=== PATIENT | female | born 1935 | race Hispanic/Latino ===

== ENCOUNTER 2017-07-06 12:16 | Emergency (ER) | payer MEDICARE ==
[~2017-07-06] VITALS: Ht 165.1 cm; Wt 65.3 kg
[~2017-07-06 12:16] MED LIST: ATENOLOL50 MG PO; GLIPIZIDE ER5 MG PO; LISINOPRIL10 MG PO
[2017-07-06] MEDS ORDERED: SODIUM CHLORIDE 0.9% 1000ML 1,000 ML IV STA (13:14)
[2017-07-06 13:25] LABS: BILIRUBIN,URINE NEGATIVE (NEGATIVE); CLARITY,URINE CLEAR (CLEAR); COLOR,URINE YELLOW (YELLOW); KETONES,URINE NEGATIVE (NEGATIVE); LEUKOCYTE ESTERASE ,URINE 1+ (NEGATIVE); NITRITE,URINE NEGATIVE (NEGATIVE); URINE UROBILINOGEN 0.2 mg/dL (0.2 - 1)
[2017-07-06 13:33] LABS: PROTEIN,URINE DIPSTICK 1+ (NEGATIVE)
[2017-07-06 13:48] LABS: BACTERIA,URINE FEW /HPF; EPITHELIAL CELLS,URINE FEW /LPF; RBC,URINE 21-50 /HPF (0-5); WBC,URINE (MAN) 21-50 /HPF (0-5)
[2017-07-06 13:49] LABS: TRANSITIONAL EPI CELLS,URINE MODERATE
--- NOTE | 2017-07-06 13:52 | Diagnostic Imaging Report ---
PROCEDURE: A single AP view of the chest. COMPARISON: None. INDICATIONS: CHEST PAIN FINDINGS: Lines/tubes: None. Lungs: The lungs are well inflated and clear. There is no evidence of pneumonia or pulmonary edema. Pleura: There is no pleural effusion or pneumothorax. Heart and mediastinum: The heart and the mediastinum are unremarkable. Bones: No acute bony abnormality. IMPRESSION: 1. No acute cardiopulmonary disease. Dictated by: Venkat Cooper M.D. on 07/06/2017 at 14:01 Electronically approved by: Venkat Cooper M.D. on 07/06/2017 at 14:01
[2017-07-06] MEDS ORDERED: ONDANSETRON HCL INJ 2 MG/ML VIAL IV STA (15:41)
[2017-07-06 16:01] LABS: BASOPHILS % 0.6 % (0.0-1.0); EOSINOPHILS # (AUTO) 0.2 (0.0-0.4); HEMATOCRIT 36.8 % (34.2-44.1); HEMOGLOBIN 11.7 g/dL (12.0-16.0); LYMPHOCYTES # (AUTO) 1.1 (1.0-3.2); LYMPHOCYTES % 21.2 % (18.0-39.1); MEAN CORPUSCULAR HEMOGLOBIN 25.2 pg (28-32); MEAN CORPUSCULAR HGB CONC 31.8 g/dL (31-35); MEAN CORPUSCULAR VOLUME 79.3 fL (81-99); MONOCYTES # (AUTO) 0.3 (0.2-0.8); MONOCYTES % 5.3 % (4.4-11.3); NEUTROPHILS # (AUTO) 3.7 (2.1-6.9); NEUTROPHILS % 69.5 % (38.7-80.0); PLATELET COUNT 126 x10e3/uL (140-360); RED BLOOD COUNT 4.64 x10e6/uL (3.6-5.1); RED CELL DISTRIBUTION WIDTH 14.1 % (11.7-14.4)
[2017-07-06 16:09] LABS: INR 0.95; PROTHROMBIN TIME 13.1 seconds (11.9-14.5)
[2017-07-06 16:10] LABS: PARTIAL THROMBOPLASTIN TIME 31.1 seconds (23.8-35.5)
[2017-07-06 16:21] LABS: ALANINE AMINOTRANSFERASE 27 IU/L (0-55); ALBUMIN 4.2 g/dL (3.5-5.0); ALKALINE PHOSPHATASE 105 IU/L (40-150); ANION GAP 13.2 mmol/L (8-16); BLOOD UREA NITROGEN 17 mg/dL (7-26); BUN/CREATININE RATIO 20 (6-25); CALCIUM 10.9 mg/dL (8.4-10.2); CARBON DIOXIDE 27 mmol/L (22-29); CHLORIDE 107 mmol/L (98-107); CREATINE KINASE 65 IU/L (29-168); CREATININE, SERUM 0.86 mg/dL (0.57-1.11); EST GLOMERULAR FILTRATION RATE > 60 ML/MIN (60-); GLUCOSE 103 mg/dL (74-118); LIPASE 7 U/L (8-78); POTASSIUM 4.2 mmol/L (3.5-5.1); SODIUM 143 mmol/L (136-145)
[2017-07-06 16:27] LABS: TROPONIN I 0.012 ng/mL (0-0.300)
[2017-07-06] MEDS ORDERED: CEFTRIAXONE SOD 1 GM VIAL IV ONE (17:00)
[2017-07-06] MEDS ORDERED: DIATRIZOATE MEGL/DIATRIZOA SOD 120 ML BTL PO ONE (18:58)
--- NOTE | 2017-07-06 21:17 | Diagnostic Imaging Report ---
EXAM: CT ABDOMEN AND PELVIS with IV CONTRAST DATE: 07/06/2017 6:13 PM Time stamp on Exam: 2033 hours INDICATION: Abdominal pain, nausea, vomiting, diarrhea COMPARISON: CT of the abdomen and pelvis without IV contrast August 30, 2016 TECHNIQUE: The abdomen and pelvis were scanned using a multidetector helical scanner. Coronal and sagittal reformations were obtained. Routine protocol performed. IV Contrast: 100 cc Isovue-370 Oral Contrast: Gastrografin CTDIvol has been reviewed. It is below the limits set by the Radiation Protocol Committee (RPC). FINDINGS: LOWER THORAX: No consolidations LIVER: No masses BILIARY: Cholecystectomy. No ductal dilation. SPLEEN: No masses PANCREAS: Fatty replacement of the pancreas. ADRENALS: No nodules KIDNEYS: Symmetric perfusion. No enhancing masses. No hydronephrosis. GI TRACT: No distention, wall thickening or evidence of obstruction. Normal appendix. VESSELS: Mild to moderate atherosclerotic changes without aneurysm. PERITONEUM/RETROPERITONEUM: No free air or fluid LYMPH NODES: No lymphadenopathy REPRODUCTIVE ORGANS: Unremarkable BLADDER: Unremarkable SOFT TISSUES: Unremarkable BONES: No suspicious bone lesions. IMPRESSION: No CT findings to explain patient's symptoms. No bowel obstruction. Signed by: Dr. Maite Amaya M.D. on 07/06/2017 9:14 PM
[2017-07-06] MEDS ORDERED: CEFTRIAXONE SOD 1 GM VIAL ONE (21:57)
[2017-07-06] MEDS ORDERED: SODIUM CHLORIDE 0.9% 50ML 50 ML ONE (22:38)
[2017-07-06] MEDS ORDERED: IOPAMIDOL 370 MG/ML 200 ML INFUS..BTL INJ ONE (22:38)
== END 2017-07-06 22:12 | disposition home or self-care (01) ==
LOC: ER 12:16
DX: R10.84 Generalized abdominal pain (principal); M54.5 Low back pain; N39.0 Urinary tract infection, site not specified; I10 Essential (primary) hypertension; E11.9 Type 2 diabetes mellitus without complications; Z86.73 Personal history of transient ischemic attack (TIA), and cerebral infarction without residual deficits
CPT/HCPCS: 36415; 71010; 74177; 80053; 81001; 82550; 82553; 83690; 84484; 85025; 85610; 85730; 87086; 99283; J0696; J2405; J7030; Q9963; Q9967

== ENCOUNTER 2018-08-20 04:42 | Emergency (ER) | payer MEDICARE ==
[~2018-08-20] VITALS: Ht 165.1 cm; Wt 65.3 kg
--- OUTSIDE RECORDS SUMMARY | 2018-08-20 04:45 | XMS REPORT | Summary of Care ---
Author Organization Unknown Address Unknown Phone Unavailable Encounter HQ [facility]cntr_aliamy([place]) [id number] Date(s): 12/27/14 - 12/27/14 [facility] Outpatient Imaging - [address] [id number] [phone] Discharge Disposition: Home Physician Attending: Dipesh Carter MD Vital Signs No data available for this section Problem List No data available for this section Allergies, Adverse Reactions, Alerts No data available for this section Medications No data available for this section Results No data available for this section Immunizations No data available for this section Procedures No data available for this section Social History No data available for this section Assessment and Plan No data available for this section
--- OUTSIDE RECORDS SUMMARY | 2018-08-20 04:45 | XMS REPORT | Continuity of Care Document ---
Author Author [facility] Interface Address Unknown Phone Unavailable Problems Problem Status Onset Date Classification Date Reported Comments Source Syncope and collapse 09/18/2017 12/17/2017 [facility] HYPOTENSION Active 09/09/2017 [facility] ATYPICAL SYNCOPE, HYPOTENSION, DEHYDRATI Active 09/09/2017 [facility] 794.8 ABNORMAL LIVER FUNCTION STUDY Active 01/11/2015 [facility] 922.31 - BACK CONTUSION Active 05/10/2013 [facility] [place] Diarrhea, unspecified 12/17/2017 [facility] Volume depletion, unspecified 12/17/2017 [facility] Abnormal weight loss 12/17/2017 [facility] Orthostatic hypotension 12/17/2017 [facility] Type 2 diabetes mellitus without complications 12/17/2017 [facility] Essential hypertension 12/17/2017 [facility] Occlusion and stenosis of bilateral carotid arteries 12/17/2017 [facility] Personal history of transient ischemic attack , and cerebral infarction without residual deficits 12/17/2017 [facility] senior care use of oral hypoglycemic drugs 12/17/2017 [facility] ABN LIVER FUNCTION STUDY Active [facility] Medications Medication Details Route Status Patient Instructions Ordering Provider Order Date Source Glipizide 5 MG Oral Tablet 2.5 mg=0.5 tab, PO, Before Breakfast, .., # 15 tab, 0 Refill(s), Pharmacy: [email or web address] [id number] Active 09/10/2017 [facility] gabapentin 100 MG Oral Capsule 200 mg=2 cap, PO, BID, # 120 cap, 0 Refill(s), Pharmacy: [facility] [id number] Active 09/10/2017 [facility] glipiZIDE extended release 10 mg, Route: PO, Daily, Dosing Weight 62.727, kg, Start date: 09/10/17 9:00:00 CDT, Duration: 30 day, Stop date: 10/09/17 9:00:00 CDT No Longer Active 09/10/2017 [facility] Docusate 100 mg, 1 cap, Route: PO, Drug form: CAP, BID, Dosing Weight 62.727, kg, Start date: 09/10/17 9:00:00 CDT, Duration: 30 day, Stop date: 10/09/17 17:00:00 CDTNotes: (Same as: Colace) (Do Not Crush) Inactive 09/10/2017 [facility] Glipizide 2.5 mg, 0.5 tab, Route: PO, Drug form: TAB, Before Breakfast, Dosing Weight 62.727, kg, Start date: 09/10/17 7:30:00 CDT, Duration: 30 day, Stop date: 10/09/17 7:30:00 CDT, ..Notes: (Same as: Glucotrol) 30 min before meals. Inactive 09/10/2017 [facility] metoprolol tartrate 25 mg, 1 tab, Route: PO, Drug form: TAB, BID, Dosing Weight 62.727, kg, Start date: 09/09/17 21:00:00 CDT, Duration: 30 day, Stop date: 10/09/17 9:00:00 CDTNotes: (Same as: Lopressor) No Longer Active 09/10/2017 [facility] Acetaminophen 325 MG / Hydrocodone Bitartrate 5 MG Oral Tablet 1 tab, Route: PO, Drug Form: TAB, Dosing Weight 62.727, kg, Q4H, PRN Pain Score 4-6, Start date: 09/09/17 18:44:00 CDT, Duration: 30 day, Stop date: 10/09/17 18:43:00 CDTNotes: (Same as: [place] 325/5) Do not exceed 4gm/day of acetaminophen. No Longer Active 09/09/2017 [facility] Acetaminophen 650 mg, 2 tab, Route: PO, Drug form: TAB, Q4H, Dosing Weight 62.727, kg, PRN Pain 1-3/Temp > 100.4 F, Start date: 09/09/17 18:44:00 CDT, Duration: 30 day, Stop date: 10/09/17 18:43:00 CDTNotes: Do not exceed 4 gm/day. (Same as: Tylenol) No Longer Active 09/09/2017 [facility] Ondansetron 4 mg, 2 mL, Route: IVP, Drug form: INJ, Q6H, Dosing Weight 62.727, kg, PRN Nausea & Vomiting, Start date: 09/09/17 18:44:00 CDT, Duration: 30 day, Stop date: 10/09/17 18:43:00 CDTNotes: (Same as: Zofran) MEDICATION WASTE Product Size: 4 mg Product Wasted: ___ mg No Longer Active 09/09/2017 [facility] Morphine 6 mg, 3 mL, Route: PO, Drug form: SOLN, Q4H, Dosing Weight 62.727, kg, PRN Pain Score 7-10, Start date: 09/09/17 18:44:00 CDT, Duration: 30 day, Stop date: 10/09/17 18:43:00 CDTNotes: (Same as:MORPhine Sulfate) No Longer Active 09/09/2017 [facility] glipiZIDE extended release 10 mg, PO, Daily, 0 Refill(s) No Longer Active 09/09/2017 [facility] metoprolol tartrate 50 mg, BID, 0 Refill(s) Active 09/09/2017 [facility] gabapentin 100 MG Oral Capsule 300 mg=3 cap, PO, TID, 0 Refill(s) No Longer Active 09/09/2017 [facility] lisinopril 5 mg oral tablet 5 mg=1 tab, PO, Daily, 0 Refill(s) No Longer Active 09/09/2017 [facility] Lisinopril PO, Daily, 0 Refill(s) No Longer Active 09/09/2017 [facility] Dicyclomine Hydrochloride 20 MG Oral Tablet [Bentyl] 20 mg=1 tab, PO, QID, 0 Refill(s) Active 09/09/2017 [facility] Allergies, Adverse Reactions, Alerts Substance Category Reaction Severity Reaction type Status Date Reported Comments Source Immunizations Immunization Date Given Site Status Last Updated Comments Source Results Order Name Results Value Reference Range Date Interpretation Comments Source Breast Mammo Scrn DAVID incl CAD MA Breast Mammo Scrn DAVID incl CAD MA BILATERAL DIGITAL SCREENING MAMMOGRAM WITH CAD: 02/05/2018 CLINICAL: Routine/Screening. Current study was evaluated with a Computer Aided Detection (CAD) system. COMPARISON:Comparison is made to exams dated: 12/27/2014 mammogram, 11/15/2012 mammogram, and 09/15/2011 mammogram - [facility]. TECHNIQUE: Mammographic views were obtained using digital acquisition. Current study was also evaluated with a Computer Aided Detection (CAD) system. FINDINGS: The tissue of both breasts is almost entirely fat. No significant masses, calcifications, or other findings are seen in either breast. There has been no significant interval change. IMPRESSION: NEGATIVE RECOMMENDATION:There is no mammographic evidence of malignancy. A 1 year screening mammogram is recommended.(02/06/2019) This exam was interpreted at [id number] at [facility] Location. Professional services are provided by the [facility] [place] [place]. Kiana Hutton M.D. th/penrad:02/07/2018 20:38:39 Dynamiter(s): Tea Richmond RT(R)(M), [facility] letter sent: BI-RADS 1/2 Mammogram BI-RADS: 1 Negative 02/05/2018 - - Read by: Kiana Hutton MD Dictated Date/time: 02/07/18 20:38 Electronically Signed by: Kiana Hutton MD 02/07/18 20:38 [facility] URINE AND STOOL UA Urobilinogen <=1.0 mg/dL 0.1 - 1.0 09/10/2017 [facility] URINE AND STOOL UA Turbidity Slight *ABN* (09/09/17 9:37 PM) Clear 09/10/2017 [facility] URINE AND STOOL UA Spec Grav 1.014 <=1.030 09/10/2017 [facility] URINE AND STOOL UA Nitrite Negative (09/09/17 9:37 PM) Negative 09/10/2017 [facility] URINE AND STOOL UA Sq Epi Occasional /LPF Few /LPF 09/10/2017 [facility] URINE AND STOOL UA Mucus Few /LPF None Seen /LPF 09/10/2017 [facility] URINE AND STOOL UA Leuk Est Negative (09/09/17 9:37 PM) Negative 09/10/2017 [facility] URINE AND STOOL UA Blood Negative (09/09/17 9:37 PM) Negative 09/10/2017 [facility] URINE AND STOOL UA Protein Negative mg/dL Negative mg/dL 09/10/2017 [facility] URINE AND STOOL UA Glucose Negative mg/dL Negative mg/dL 09/10/2017 [facility] URINE AND STOOL UA pH 5.0 5.0 - 8.0 09/10/2017 [facility] URINE AND STOOL UA Color Yellow *NA* (09/09/17 9:37 PM) Yellow 09/10/2017 [facility] URINE AND STOOL UA Bili Negative *NA* (09/09/17 9:37 PM) Negative 09/10/2017 [facility] URINE AND STOOL UA Ketones Negative mg/dL Negative mg/dL 09/10/2017 [facility] Carotid artery Doppler bilat US Carotid artery Doppler bilat US Patient Name: REGINA VALENZUELA : 1935; Age: 82 years Female MR: [id number] Study: Carotid artery Doppler bilat US 09/09/2017 6:53 PM CDT Clinical Indication: - syncope. COMPARISON: 08/05/2010 TECHNIQUE: Chadwick-scale, color Doppler and spectral Doppler of the carotid arteries was performed. Any reported ICA stenoses indirectly reference the distal internal carotid diameter as the denominator for the stenosis measurement, utilizing consensus panel criteria. FINDINGS: RIGHT: Mild plaque formation. ICA PSV 84 cm/sec CCA PSV 116 cm/sec ICA/CCA ratio 0.72 Vertebral flow is antegrade. External carotid artery is patent. LEFT: Mild plaque formation. ICA PSV 145 cm/sec CCA PSV 137 cm/sec ICA/CCA ratio 1.06 Vertebral flow is antegrade. External carotid artery is patent. IMPRESSION: 1. RIGHT: ICA stenosis <50% by velocity criteria. 1. LEFT: ICA stenosis <50% by velocity criteria. Consensus panel Doppler US criteria for diagnosis of ICA stenosis: Stenosis (%) ICA PSV (cm/sec) ICA/CCA ratio <50 <125 <2.0 50-69 125-230 2.0-4.0 >70 but less than >230 >4.0 near occlusion Near occlusion High, low, or Variable undetectable SL: ENEDINA 09/09/2017 - - Read by: Brenton Flores MD Dictated Date/time: 09/09/17 21:55 Electronically Signed by: Brenton Flores MD 09/09/17 21:59 FINAL REPORT [facility] CARDIAC ENZYMES BNP 28 pg/mL <=100 pg/mL 09/09/2017 [facility] CARDIAC ENZYMES Troponin-I null 0.00 - 0.40 09/09/2017 [facility] ELECTROLYTES AGAP 9.2 meq/L 10.0 - 20.0 09/09/2017 [facility] ELECTROLYTES eGFR 55 mL/min/1.73m2 09/09/2017 Result Comment: The eGFR is calculated using the CKD-EPI formula. In most young, healthy individuals the eGFR will be >90 mL/min/1.73m2. The eGFR declines with age. An eGFR of 60-89 may be normal in some populations, particularly the elderly, for whom the CKD-EPI formula has not been extensively validated. Use of the eGFR is not recommended in the following populations: Individuals with unstable creatinine concentrations, including patients and those with serious co-morbid conditions. Patients with extremes in muscle mass or diet. The data above are obtained from the National Kidney Disease Education Program (NKDEP) which additionally recommends that when the eGFR is used in patients with extremes of body mass index for purposes of drug dosing, the eGFR should be multiplied by the estimated BMI. [facility] ELECTROLYTES Calcium Lvl 7.6 mg/dL 8.5 - 10.5 09/09/2017 [facility] ELECTROLYTES CO2 25 meq/L 24 - 32 09/09/2017 [facility] ELECTROLYTES Potassium Lvl 4.2 meq/L 3.5 - 5.1 09/09/2017 [facility] ELECTROLYTES Chloride Lvl 107 meq/L 95 - 109 09/09/2017 [facility] ELECTROLYTES Glucose Lvl 193 mg/dL 70 - 99 09/09/2017 [facility] ELECTROLYTES BUN 16 mg/dL 7 - 22 09/09/2017 [facility] ELECTROLYTES Creatinine Lvl 0.96 mg/dL 0.50 - 1.40 09/09/2017 [facility] ELECTROLYTES Sodium Lvl 137 meq/L 135 - 145 09/09/2017 [facility] HEMATOLOGY RDW 15.5 % 11.5 - 14.5 09/09/2017 [facility] MPV 9.8 fL 7.4 - 10.4 09/09/2017 [facility] Platelet 81 K/CMM 133 - 450 09/09/2017 [facility] MCH 25.2 pg 27.0 - 31.0 09/09/2017 [facility] MCHC 32.1 g/dL 32.0 - 36.0 09/09/2017 [facility] Hct 31.7 % 36.0 - 48.0 09/09/2017 [facility] MCV 78.5 fL 80.0 - 98.0 09/09/2017 [facility] Hgb 10.2 g/dL 12.0 - 16.0 09/09/2017 [facility] RBC 4.04 M/CMM 4.20 - 5.40 09/09/2017 [facility] WBC 4.4 K/CMM 3.7 - 10.4 09/09/2017 [facility] Segs 70.4 % 45.0 - 75.0 09/09/2017 [facility] Lymphocytes 11.9 % 20.0 - 40.0 09/09/2017 [facility] Monocytes 12.9 % 2.0 - 12.0 09/09/2017 [facility] Eosinophils 4.1 % 0.0 - 4.0 09/09/2017 [facility] Basophils 0.7 % 0.0 - 1.0 09/09/2017 [facility] Segs-Bands # 3.1 K/CMM 1.5 - 8.1 09/09/2017 [facility] Monocytes # 0.6 K/CMM 0.0 - 0.8 09/09/2017 [facility] Lymphocytes # 0.5 K/CMM 1.0 - 5.5 09/09/2017 [facility] Microcyte 1+ *ABN* (09/09/17 12:10 PM) None Seen 09/09/2017 [facility] Eosinophils # 0.2 K/CMM 0.0 - 0.5 09/09/2017 [facility] Brain wo contrast CT Brain wo contrast CT Clinical Indication: - syncope , weakness and fatigue Comparison: 04/01/2013 TECHNIQUE: CT images were obtained from the foramen magnum to the vertex after the use of intravenous contrast on a multidetector CT. 3-D sagittal and coronal reconstructions submitted as well. CONTRAST: None CT radiation dose DLP: 981.84 mGy-cm FINDINGS: BRAIN PARENCHYMA: Generalized age-related parenchymal atrophy. Scattered foci of periventricular and deep cerebral hemispheric white matter hypoattenuation are nonspecific but likely secondary to chronic microvascular ischemic disease. Subtle low-attenuation left lentiform nucleus, unchanged, suggesting sequela of remote lacunar infarct. There are no focal mass lesions on the noncontrast head CT. There is no mass effect, midline shift or edema. There are no intra-axial or extra-axial fluid collections, intraventricular or intraparenchymal hemorrhage. VENTRICLES: No acute hydrocephalus. The basilar cisterns are normal. ORBITS, MASTOIDS AND PARANASAL SINUSES: The visualized orbits and paranasal sinuses are unremarkable. The mastoid air cells are clear. SKULL: No depressed skull fractures. If there is continued concern, further assessment with dedicated MR of the brain may be beneficial. IMPRESSION: 1. No CT evidence for acute intracranial process. 2. Generalized age-related parenchymal atrophy and chronic microvascular ischemic disease. SL: [id number] 09/09/2017 - - Read by: Mitch Sue MD Dictated Date/time: 09/09/17 14:27 Electronically Signed by: Mitch Sue MD 09/09/17 14:28 FINAL REPORT [facility] Chest 1view DX Chest 1view DX Chest 1view DX CLINICAL HISTORY: - syncope COMPARISON: 07/20/2006 FINDINGS: Limited AP portable study. SUPPORT DEVICES: none LUNGS: Lungs are reasonably well inflated. No consolidation or any significant effusion. No pneumothorax is evident. CARDIOVASCULAR: Cardiac silhouette size is within normal limits. No pulmonary edema. MEDIASTINUM/WILLIAN: Trachea is midline. No contour abnormality is noted. BONE AND SOFT TISSUES: No acute abnormality is noted. Multiple EKG leads and other wires project over the patient's chest. IMPRESSION: No acute abnormality is noted in the chest. SL: [id number] 09/09/2017 - - Read by: Kadeem Condon MD Dictated Date/time: 09/09/17 12:44 Electronically Signed by: Kadeem Condon MD 09/09/17 12:45 FINAL REPORT [facility] Liver US Liver US HISTORY: Abnormal liver function test. Gallbladder absent. Hepatic steatosis without focal lesion or duct dilatation. Pancreas normal, although distal body and tail are obscured. Common bile duct 5 mm. Right kidney demonstrates no hydronephrosis. IMPRESSION: Hepatic steatosis without focal lesion or bile duct dilatation. Prior cholecystectomy. SL:13 01/15/2015 - - Read by: Osmar Zhong MD Dictated Date/time: 01/15/15 10:17 Electronically Signed by: Osmar Zhong MD 01/15/15 10:18 FINAL REPORT [facility] Digital Mammo Screening [place] Digital Mammo Screening [place] - DIGITAL MAMMO SCREENING DAVID [place] BILATERAL DIGITAL SCREENING MAMMOGRAM WITH CAD: 12/27/2014 CLINICAL: Routine. Current study was evaluated with a Computer Aided Detection (CAD) system. Comparison is made to exams dated: 01/08/2009 mammogram - [place], 01/14/2010 mammogram, 09/15/2011 mammogram and 11/15/2012 mammogram - [facility]. The tissue of both breasts is almost entirely fat. Acquired images are the best technically achievable. No significant masses, calcifications, or other findings are seen in either breast. There has been no significant interval change. IMPRESSION: BENIGN There is no mammographic evidence of malignancy. A 1 year screening mammogram is recommended. Dr. Berry Mendoza M.D. eoc/penrad:12/27/2014 12:07:06 Dynamiter: Roxanna FLANAGAN(Cesar)(M), [facility] This exam was dictated and interpreted by [id number] for SEE Marrufo. letter sent: Normal exam Mammogram BI-RADS: 2 Benign 12/27/2014 - - Read by: Berry Mendoza MD Dictated Date/time: 12/27/14 12:07 Electronically Signed by: Berry Mendoza MD 12/27/14 12:07 FINAL REPORT CARLOS Burks Spine lumbar minimum 4 views Spine lumbar minimum 4 views Exam: Lumbar Spine X-ray, 5 views Reason for Exam: Back pain Comparison Exam: Lumbar spine x-ray 06/17/2006 Discussion: 5 non rib-bearing lumbar vertebral bodies are seen. Vertebral body heights are maintained. No scoliosis. Grade 1 anterolisthesis of L5 on S1 measuring approximately 9 mm. Facet joint arthropathy seen within the lower lumbar spine. Moderate amount of plaque seen throughout the abdominal aorta. No suspicious osteoblastic or osteolytic lesions. Note that a lumbar spine x-ray cannot rule out ligamentous injuries or spinal cord abnormalities. No dilated loops of bowel within the visualized portions of the abdomen and pelvis. Impression: 1. Grade 1 anterolisthesis of L5 on S1 measuring approximately 9 mm. Facet joint arthropathy seen within the lower lumbar spine. 05/10/2013 - - Read by: Checo Morgan Dictated Date/time: 05/10/13 15:04 Electronically Signed by: Checo Morgan MD 05/10/13 15:08 FINAL REPORT SEE [facility]ks Spine thoracic 3 views Spine thoracic 3 views Exam: Thoracic spine x-ray, 3 views Reason for Exam: Back pain Comparison Exam: Thoracic spine x-ray 06/17/2006 Discussion: No acute bony abnormalities identified within the thoracic spine. Vertebral body heights are maintained. Multilevel degenerative disc disease is seen characterized by loss in disc height as well as anterior bridging osteophyte formation. Mild kyphosis seen within the upper thoracic spine. No suspicious osteoblastic or osteolytic lesions. No spondylolisthesis identified. Note that a thoracic spine x-ray cannot rule out ligamentous injuries or spinal cord abnormalities. The visualized portions of the mediastinum are unremarkable. Impression: 1. Multilevel degenerative disc disease. No acute bony abnormalities are appreciated. 05/10/2013 - - Read by: Checo Morgan Dictated Date/time: 05/10/13 15:08 Electronically Signed by: Checo Morgan MD 05/10/13 15:10 FINAL REPORT SEE Burks Brain wo contrast CT Brain wo contrast CT EXAMINATION: CT of the head without contrast COMPARISON: August 05, 2010 TECHNIQUE: Multiple computerized axial tomographic images were obtained of the head without IV contrast utilizing standard protocol and archived to PACS. Sagittal and coronal reconstructions are provided for additional information. DLP: 889.63 COMMENTS: Mild diffuse atrophy. Scattered periventricular white matter hypodense foci noted compatible with chronic small vessel ischemia. The septum pellucidum is in the midline. The ventricles are normal in size and configuration. There is no evidence of acute intracranial hemorrhage, acute cortical infarct, mass effect or subdural collection. Skull is intact. IMPRESSION: 1. NO EVIDENCE OF HEMORRHAGE, MASS LESION OR ACUTE INFARCTION. 2. CHRONIC AGE RELATED CHANGES DETAILED ABOVE. 04/01/2013 - - Read by: Forest Plascencia Dictated Date/time: 04/01/13 10:17 Electronically Signed by: [place] Plascencia MD 04/01/13 10:20 FINAL REPORT SEE [facility]ks Digital Mammo Screening [place] Digital Mammo Screening [place] MA - DIGITAL MAMMO SCREENING DAVID MA BILATERAL DIGITAL SCREENING MAMMOGRAM WITH CAD: 11/15/2012 CLINICAL: Routine. Current study was evaluated with a Computer Aided Detection (CAD) system. Comparison is made to exams dated: 01/08/2009 mammogram - [place], 01/14/2010 mammogram and 09/15/2011 mammogram - [facility]. The tissue of both breasts is predominantly fatty. There is a benign mass in the left breast. No significant masses, calcifications, or other findings are seen in either breast. There has been no significant interval change. IMPRESSION: BENIGN There is no mammographic evidence of malignancy. A screening mammogram in one year is recommended. Nuno Fang M.D. srp/penrad:11/16/2012 11:54:41 Dynamiter: Meredith FLANAGAN(Cesar)(M), [facility] letter sent: Normal exam Mammogram BI-RADS: 2 Benign 11/15/2012 - - Read by: Nuno Fang Dictated Date/time: 11/16/12 11:54 Electronically Signed by: Nuno Fang 11/16/12 11:54 FINAL REPORT [facility] Vital Signs Vital Sign Value Date Comments Source Systolic (mm Hg) 124 09/10/2017 [facility] Diastolic (mm Hg) 64 09/10/2017 [facility] Heart Rate 71 09/10/2017 [facility] Temperature Oral (F) 98.9 F 09/10/2017 [facility] Respitory Rate 16 09/10/2017 [facility] Heart Rate 71 09/10/2017 [facility] Temperature Oral (F) 98.6 F 09/10/2017 [facility] Respitory Rate 15 09/10/2017 [facility] Systolic (mm Hg) 133 09/10/2017 [facility] Diastolic (mm Hg) 86 09/10/2017 [facility] Temperature Oral (F) 98.8 F 09/10/2017 [facility] Heart Rate 68 09/10/2017 [facility] Respitory Rate 16 09/10/2017 [facility] Systolic (mm Hg) 126 09/10/2017 [facility] Diastolic (mm Hg) 57 09/10/2017 [facility] Height 160.02 cm 09/09/2017 [facility] BMI Calculated 24.14 09/09/2017 [facility] Weight 61.818 09/09/2017 [facility] Height 162.56 cm 09/09/2017 [facility] BMI Calculated 23.74 09/09/2017 [facility] Weight 62.727 09/09/2017 [facility] Encounters Location Location Details Encounter Type Encounter Number Reason For Visit Attending Provider ADM Date DC Date Status Source OD [id number] 922.31 - BACK CONTUSION DIPESH MATAMOROS 05/10/2013 05/10/2013 Active [facility] [place] [facility] [id number] Dipesh Matamoros 12/27/2014 12/28/2014 [facility] [id number] Dipesh Matamoros 01/15/2015 01/16/2015 [facility] [id number] Sandi Mauricio 09/09/2017 09/10/2017 [facility] Procedures Procedure Code Date Perfomer Comments Source
--- OUTSIDE RECORDS SUMMARY | 2018-08-20 04:45 | XMS REPORT ---
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 Allergies, Adverse Reactions, Alerts This patient has no known allergies or adverse reactions. Medications This patient has no known medications. Results Test Description Test Time Test Comments Text Results Atomic Results Result Comments CT ABDOMEN/PELVIS W [place] [address] Patient Name: REGINA VALENZUELA MR #: [id number] : 1935 Age/Sex: 82/F Req #: [id number] Adm Physician: Ordered by: KAREN CHAMPAGNE SHAKER OUT Report #: [id number] Location: ER Room/Bed: Procedure: [id number] CT/CT ABDOMEN/PELVIS W Exam Date: Exam Time: REPORT STATUS: Signed EXAM: CT ABDOMEN AND PELVIS with IV CONTRAST DATE: 07/06/2017 6:13 PM Time stamp on Exam: 2034 hours INDICATION: Abdominal pain, nausea, vomiting, diarrhea COMPARISON: CT of the abdomen and pelvis without IV contrast August 30, 2016 TECHNIQUE: The abdomen and pelvis were scanned using a multidetector helical scanner. Coronal and sagittal reformations were obtained. Routine protocol performed. IV Contrast: 100 cc Isovue-370 Oral Contrast: Gastrografin CTDIvol has been reviewed. It is below the limits set by the Radiation Protocol Committee (RPC). FINDINGS: LOWER THORAX: No consolidations LIVER: No masses BILIARY: Cholecystectomy. No ductal dilation. SPLEEN: No masses PANCREAS: Fatty replacement of the pancreas. ADRENALS: No nodules KIDNEYS: Symmetric perfusion. No enhancing masses. No hydronephrosis. GI TRACT: No distention, wall thickening or evidence of obstruction. Normal appendix. VESSELS: Mild to moderate atherosclerotic changes without aneurysm. PERITONEUM/RETROPERITONEUM: No free air or fluid LYMPH NODES: No lymphadenopathy REPRODUCTIVE ORGANS: Unremarkable BLADDER: Unremarkable SOFT TISSUES: Unremarkable BONES: No suspicious bone lesions. IMPRESSION: No CT findings to explain patient's symptoms. No bowel obstruction. Signed by: Dr. Shane Amaya M.D. on 07/06/2017 9:14 PM Dictated By: SHANE AMAYA MD 13 Transcribed By: AR on 07/06/172113 COPY TO: KAREN CHAMPAGNE SHAKER OUT CHEST SINGLE (PORTABLE) [place] [address] Patient Name: REGINA VALENZUELA MR #: [id number] : 1935 Age/Sex: 82/F Req #: [id number] Adm Physician: Ordered by: KAREN CHAMPAGNE SHAKER OUT Report #: [id number] Location: ER Room/Bed: Procedure: [id number] DX/CHEST SINGLE (PORTABLE) Exam Date: 07/06/17 Exam Time: 1345 REPORT STATUS: Signed PROCEDURE: A single AP view of the chest. COMPARISON: None. INDICATIONS: CHEST PAIN FINDINGS: Lines/tubes: None. Lungs: The lungs are well inflated and clear. There is no evidence of pneumonia or pulmonary edema. Pleura: There is no pleural effusion or pneumothorax. Heart and mediastinum: The heart and the mediastinum are unremarkable. Bones: No acute bony abnormality. IMPRESSION: 1. No acute cardiopulmonary disease. Dictated by: Venkat Miramontes M.D. on 07/06/2017 at 14:01 Electronically approved by: Venkat Miramontes M.D. on 07/06/2017 at 14:01 Dictated By: VENKAT MIRAMONTES MD 1401 Transcribed By: JODY on 07/06/17 1401 COPY TO: KAREN CHAMPAGNE NP
--- OUTSIDE RECORDS SUMMARY | 2018-08-20 04:45 | XMS REPORT | Summary of Care ---
Author Author [facility] Organization [facility] Address Unknown Phone Unavailable Encounter EVERARDO Oquendo([place]) [id number] Date(s): 09/09/17 - 09/10/17 [facility] [address] [place] [address]- [phone] Encounter Diagnosis Syncope and collapse (Final) - 09/17/17 Diarrhea, unspecified (Final) - Volume depletion, unspecified (Final) - Abnormal weight loss (Final) - Orthostatic hypotension (Final) - Type 2 diabetes mellitus without complications (Final) - Essential (primary) hypertension (Final) - Occlusion and stenosis of bilateral carotid arteries (Final) - Personal history of transient ischemic attack (TIA), and cerebral infarction wit hout residual deficits (Final) - 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 (Final) - Discharge Disposition: Home or Self Care Attending Physician: Sandi Mauricio MD Admitting Physician: Sandi Mauricio MD Vital Signs 1 2 3 Most recent to oldest [Reference Range]: 160.02 cm (09/09/17 5:15 PM) 162.56 cm (09/09/17 12:01 PM) Height 98.9 DegF (09/10/17 7:12 AM) 98.6 DegF (09/10/17 3:48 AM) 98.8 DegF (09/09/17 11:21 PM) Temperature Oral [96.4-99.1 DegF] 124/64 mmHg (09/10/17 7:12 AM) 133/86 mmHg (09/10/17 3:48 AM) 126/57 mmHg (09/09/17 11:21 PM) Blood Pressure [90-140/60-90 mmHg] 16 BRMIN (09/10/17 7:12 AM) 15 BRMIN (09/10/17 3:48 AM) 16 BRMIN (09/09/17 11:21 PM) Respiratory Rate [14-20 BRMIN] 71 bpm (09/10/17 7:12 AM) 71 bpm (09/10/17 3:48 AM) 68 bpm (09/09/17 11:21 PM) Peripheral Pulse Rate [60-100 bpm] 61.818 kg (09/09/17 5:15 PM) 62.727 kg (09/09/17 12:01 PM) Weight 24.14 m2 (09/09/17 5:15 PM) 23.74 m2 (09/09/17 12:01 PM) Body Mass Index Problem List No data available for this section Allergies, Adverse Reactions, Alerts Substance Reaction Severity Status NKDA Active Medications acetaminophen 650 mg, 2 tab, Route: PO, Drug form: TAB, Q4H, Dosing Weight 62.727, kg, PRN Jean n 1-3/Temp > 100.4 F, Start date: 09/09/17 18:44:00 CDT, Duration: 30 day, Stop date: 10/09/17 18:43:00 CDT Notes: Do not exceed 4 gm/day. (Same as: Tylenol) Start Date: 09/09/17 Stop Date: 09/10/17 Status: Discontinued acetaminophen-hydrocodone 325 mg-5 mg oral tablet 1 tab, Route: PO, Drug Form: TAB, Dosing Weight 62.727, kg, Q4H, PRN Pain Score 4-6, Start date: 09/09/17 18:44:00 CDT, Duration: 30 day, Stop date: 10/09/17 18 :43:00 CDT Notes: (Same as: [place]hel 325/5) Do not exceed 4gm/day of acetaminophen. Start Date: 09/09/17 Stop Date: 09/10/17 Status: Discontinued Bentyl 20 mg oral tablet 20 mg=1 tab, PO, QID, 0 Refill(s) Start Date: 09/09/17 Status: Ordered docusate 100 mg, 1 cap, Route: PO, Drug form: CAP, BID, Dosing Weight 62.727, kg, Start d ate: 09/10/17 9:00:00 CDT, Duration: 30 day, Stop date: 10/09/17 17:00:00 CDT Notes: (Same as: Colace) (Do Not Crush) Start Date: 09/10/17 Stop Date: 09/10/17 Status: Discontinued gabapentin 100 mg oral capsule 300 mg=3 cap, PO, TID, 0 Refill(s) Start Date: 09/09/17 Stop Date: 09/10/17 Status: Discontinued gabapentin 100 mg oral capsule 200 mg=2 cap, PO, BID, # 120 cap, 0 Refill(s), Pharmacy: [id number] Start Date: 09/10/17 Stop Date: 10/10/17 Status: Ordered glipiZIDE 2.5 mg, 0.5 tab, Route: PO, Drug form: TAB, Before Breakfast, Dosing Weight 62.7 27, kg, Start date: 09/10/17 7:30:00 CDT, Duration: 30 day, Stop date: 10/09/17 7:30:00 CDT, .. Notes: (Same as: Glucotrol) 30 min before meals. Start Date: 09/10/17 Stop Date: 09/10/17 Status: Discontinued glipiZIDE 5 mg oral tablet 2.5 mg=0.5 tab, PO, Before Breakfast, .., # 15 tab, 0 Refill(s), Pharmacy: [facility] [place] [id number] Start Date: 09/10/17 Stop Date: 10/10/17 Status: Ordered glipiZIDE extended release 10 mg, Route: PO, Daily, Dosing Weight 62.727, kg, Start date: 09/10/17 9:00:00 CDT, Duration: 30 day, Stop date: 10/09/17 9:00:00 CDT Start Date: 09/10/17 Stop Date: 09/09/17 Status: Canceled glipiZIDE extended release 10 mg, PO, Daily, 0 Refill(s) Start Date: 09/09/17 Stop Date: 09/10/17 Status: Discontinued lisinopril PO, Daily, 0 Refill(s) Start Date: 09/09/17 Stop Date: 09/10/17 Status: Discontinued lisinopril 5 mg oral tablet 5 mg=1 tab, PO, Daily, 0 Refill(s) Start Date: 09/09/17 Stop Date: 09/10/17 Status: Discontinued metoprolol tartrate 50 mg, BID, 0 Refill(s) Start Date: 09/09/17 Status: Ordered metoprolol tartrate 25 mg, 1 tab, Route: PO, Drug form: TAB, BID, Dosing Weight 62.727, kg, Start da te: 09/09/17 21:00:00 CDT, Duration: 30 day, Stop date: 10/09/17 9:00:00 CDT Notes: (Same as: Lopressor) Start Date: 09/09/17 Stop Date: 09/10/17 Status: Discontinued morphine Sulfate 6 mg, 3 mL, Route: PO, Drug form: SOLN, Q4H, Dosing Weight 62.727, kg, PRN Pain Score 7-10, Start date: 09/09/17 18:44:00 CDT, Duration: 30 day, Stop date: 09/27 09/13 18:43:00 CDT Notes: (Same as:MORPhine Sulfate) Start Date: 09/09/17 Stop Date: 09/10/17 Status: Discontinued ondansetron 4 mg, 2 mL, Route: IVP, Drug form: INJ, Q6H, Dosing Weight 62.727, kg, PRN Nause a & Vomiting, Start date: 09/09/17 18:44:00 CDT, Duration: 30 day, Stop date: 10/09/17 18:43:00 CDT Notes: (Same as: Nishant) MEDICATION WASTE Product Size: 4 mgProduct Was pedro: ___ mg Start Date: 09/09/17 Stop Date: 09/10/17 Status: Discontinued Results ELECTROLYTES Most recent to 1 oldest [Reference Range]: Sodium Lvl [135-145 137 mEq/L mEq/L] (09/09/17 12:10 PM) Potassium Lvl 4.2 mEq/L [3.5-5.1 mEq/L] (09/09/17 12:10 PM) Chloride Lvl [95-109 107 mEq/L mEq/L] (09/09/17 12:10 PM) CO2 [24-32 mEq/L] 25 mEq/L (09/09/17 12:10 PM) AGAP [10.0-20.0 9.2 mEq/L mEq/L] *LOW* (09/09/17 12:10 PM) CHEM PANEL Most recent to 1 oldest [Reference Range]: Creatinine Lvl 0.96 mg/dL [0.50-1.40 mg/dL] (09/09/17 12:10 PM) eGFR 55 mL/min/1.73m2 1 *NA* (09/09/17 12:10 PM) BUN [7-22 mg/dL] 16 mg/dL (09/09/17 12:10 PM) Glucose Lvl [70-99 193 mg/dL mg/dL] *HI* (09/09/17 12:10 PM) Calcium Lvl 7.6 mg/dL [8.5-10.5 mg/dL] *LOW* (09/09/17 12:10 PM) 1Result Comment: The eGFR is calculated using the [...] from the National Kidney Disease Education Program ( NKDEP) which additionally recommends that when the eGFR is used in patients with extremes of body mass index for purposes of drug dosing, the eGFR should be mul tiplied by the estimated BMI. CARDIAC ENZYMES Most recent to 1 oldest [Reference Range]: Troponin-I <0.02 ng/mL [0.00-0.40 ng/mL] (09/09/17 12:10 PM) BNP [<=100 pg/mL] 28 pg/mL (09/09/17 12:10 PM) URINE AND STOOL Most recent to 1 oldest [Reference Range]: UA Turbidity [Clear] Slight *ABN* (09/09/17 9:37 PM) UA Color [Yellow] Yellow *NA* (09/09/17 9:37 PM) UA pH [5.0-8.0] 5.0 (09/09/17 9:37 PM) UA Spec Grav 1.014 [<=1.030] (09/09/17 9:37 PM) UA Glucose [Negative Negative mg/dL mg/dL] *NA* (09/09/17 9:37 PM) UA Blood [Negative] Negative (09/09/17 9:37 PM) UA Ketones [Negative Negative mg/dL mg/dL] *NA* (09/09/17 9:37 PM) UA Protein [Negative Negative mg/dL mg/dL] (09/09/17 9:37 PM) UA Urobilinogen <=1.0 mg/dL [0.1-1.0 mg/dL] *NA* (09/09/17 9:37 PM) UA Bili [Negative] Negative *NA* (09/09/17 9:37 PM) UA Leuk Est Negative [Negative] (09/09/17 9:37 PM) UA Nitrite Negative [Negative] (09/09/17 9:37 PM) UA Sq Epi [Few /LPF] Occasional /LPF *NA* (09/09/17 9:37 PM) UA Mucus [None Seen Few /LPF /LPF] *NA* (09/09/17 9:37 PM) HEMATOLOGY Most recent to 1 oldest [Reference Range]: WBC [3.7-10.4 K/CMM] 4.4 K/CMM (09/09/17 12:10 PM) RBC [4.20-5.40 4.04 M/CMM M/CMM] *LOW* (09/09/17 12:10 PM) Hgb [12.0-16.0 g/dL] 10.2 g/dL *LOW* (09/09/17 12:10 PM) Hct [36.0-48.0 %] 31.7 % *LOW* (09/09/17 12:10 PM) MCV [80.0-98.0 fL] 78.5 fL *LOW* (09/09/17 12:10 PM) MCH [27.0-31.0 pg] 25.2 pg *LOW* (09/09/17 12:10 PM) MCHC [32.0-36.0 32.1 g/dL g/dL] (09/09/17 12:10 PM) RDW [11.5-14.5 %] 15.5 % *HI* (09/09/17 12:10 PM) MPV [7.4-10.4 fL] 9.8 fL (09/09/17 12:10 PM) Platelet [133-450 81 K/CMM K/CMM] *LOW* (09/09/17 12:10 PM) Segs [45.0-75.0 %] 70.4 % (09/09/17 12:10 PM) Lymphocytes 11.9 % [20.0-40.0 %] *LOW* (09/09/17 12:10 PM) Monocytes [2.0-12.0 12.9 % %] *HI* (09/09/17 12:10 PM) Eosinophils [0.0-4.0 4.1 % %] *HI* (09/09/17 12:10 PM) Basophils [0.0-1.0 0.7 % %] (09/09/17 12:10 PM) Segs-Bands # 3.1 K/CMM [1.5-8.1 K/CMM] (09/09/17 12:10 PM) Lymphocytes # 0.5 K/CMM [1.0-5.5 K/CMM] *LOW* (09/09/17 12:10 PM) Monocytes # [0.0-0.8 0.6 K/CMM K/CMM] (09/09/17 12:10 PM) Eosinophils # 0.2 K/CMM [0.0-0.5 K/CMM] (09/09/17 12:10 PM) Microcyte [None 1+ Seen] *ABN* (09/09/17 12:10 PM) Immunizations No data available for this section Procedures No data available for this section Social History Social History Type Response Smoking Status Never smoker; Ready to change: No; Concerns about tobacco use in household: No; Exposure to Tobacco Smoke None; Cigarette Smoking Last 365 Days No; Reg Smoking Cessation Counseling No entered on: 09/09/17 Assessment and Plan No data available for this section
--- OUTSIDE RECORDS SUMMARY | 2018-08-20 04:45 | XMS REPORT | Summary of Care ---
Author Author [facility] Organization [facility] Address Unknown Phone Unavailable Encounter HQ Encntr_alias(FIN) [id number] Date(s): 01/15/15 - 01/15/15 [facility] [address] [place] [address]- [phone] Discharge Disposition: Home Attending Physician: Dipesh Carter MD Referring Physician: Dipesh Carter MD Vital Signs No data [...]
[2018-08-20] MEDS ORDERED: TRAMADOL HCL 50 MG TAB PO ONE (05:00)
[2018-08-20 05:37] LABS: BILIRUBIN,URINE NEGATIVE (NEGATIVE); CLARITY,URINE SL CLOUDY (CLEAR); COLOR,URINE YELLOW (YELLOW); KETONES,URINE NEGATIVE (NEGATIVE); LEUKOCYTE ESTERASE ,URINE NEGATIVE (NEGATIVE); NITRITE,URINE NEGATIVE (NEGATIVE); PROTEIN,URINE DIPSTICK TRACE (NEGATIVE); URINE UROBILINOGEN 0.2 mg/dL (0.2 - 1)
--- NOTE | 2018-08-20 05:51 | Diagnostic Imaging Report ---
EXAM: CT Abdomen and Pelvis WITHOUT contrast INDICATION: ^STONE PROTOCOL, RIGHT FLANK PAIN ^[id number] ^0528 ^Y COMPARISON: CT dated 07/06/2017 TECHNIQUE: Abdomen and pelvis were scanned utilizing a multidetector helical scanner from the lung base to the pubic symphysis without administration of IV contrast. Absence of intravenous contrast decreases sensitivity for detection of focal lesions and vascular pathology. Coronal and sagittal reformations were obtained. Renal stone protocol was performed. IV CONTRAST: None ORAL CONTRAST: Water COMPLICATIONS: None RADIATION DOSE: Total DLP: 401.84 mGy*cm Estimated effective dose: (DLP x 0.015 x size factor) mSv CTDIvol has been reviewed. It is below the limits set by the Radiation Protocol Committee (RPC). FINDINGS: LINES and TUBES: None. LOWER THORAX: Mild bibasilar linear atelectasis/scarring. HEPATOBILIARY: Diffuse hepatic steatosis. Otherwise, unenhanced liver is unremarkable. No biliary ductal dilation. GALLBLADDER: Surgically absent. SPLEEN: No splenomegaly. PANCREAS: Fatty involution of the pancreas. No focal masses or ductal dilatation. ADRENALS: No adrenal nodules KIDNEYS/URETERS: No hydronephrosis. Limited for evaluation of renal parenchyma without intravenous contrast. 1.5 cm left superior pole cyst No stones. GI TRACT: No abnormal distention, wall thickening, or evidence of bowel obstruction. Few sigmoid diverticula without evidence of diverticulitis. Appendix is normal. PELVIC ORGANS/BLADDER: Bladder is collapsed, limiting evaluation. LYMPH NODES: No lymphadenopathy. VESSELS: There is mild atherosclerotic disease in the aorta and major arterial branches. PERITONEUM / RETROPERITONEUM: No free air or fluid. BONES: Degenerative changes of lumbar spine, most notable at L4-L5. SOFT TISSUES: Unremarkable. IMPRESSION: 1. No nephrolithiasis or evidence of obstructive urolithiasis. 2. Hepatic steatosis. Signed by: Dr. Venkat Cooper MD on 08/20/2018 5:48 AM
[2018-08-20 06:11] LABS: EPITHELIAL CELLS,URINE FEW /LPF
[2018-08-20 06:12] LABS: BACTERIA,URINE MODERATE /HPF; RBC,URINE 0-5 /HPF (0-5); WBC,URINE (MAN) 0-5 /HPF (0-5)
[2018-08-20 06:47] VITALS: BP 170/63
== END 2018-08-20 07:11 | disposition home or self-care (01) ==
LOC: ER 04:42
DX: M54.5 Low back pain (principal); S39.012A Strain of muscle, fascia and tendon of lower back, initial encounter; I10 Essential (primary) hypertension; E11.9 Type 2 diabetes mellitus without complications
CPT/HCPCS: 74176; 81001; 99284

== ENCOUNTER 2018-08-25 13:08 | Emergency (ER) | payer MEDICARE ==
[~2018-08-25] VITALS: Ht 165.1 cm; Wt 65.3 kg
--- OUTSIDE RECORDS SUMMARY | 2018-08-25 13:12 | XMS REPORT | Summary of Care ---
Author Author [facility] Organization [facility] Address Unknown Phone Unavailable Encounter HQ Alexandrentr_mickie(FIN) [id number] Date(s): 02/05/18 - 02/05/18 [facility] [address] [place] [address]- [phone] Encounter Diagnosis Encounter for screening mammogram for malignant neoplasm of breast (Final) - 02/10/18 Discharge Disposition: Home or Self Care Attending Physician: Dipesh Carter MD Referring Physician: Dipesh Carter MD Vital Signs No data available for this section Problem List No data available for this section Allergies, Adverse Reactions, Alerts Substance Reaction Severity Status NKDA Active Medications No data available for this section [...]
--- OUTSIDE RECORDS SUMMARY | 2018-08-25 13:12 | XMS REPORT | Continuity of Care Document ---
Author Author [facility] Interface Address Unknown Phone Unavailable Problems Problem Status Onset Date Classification Date Reported Comments Source Encounter for screening mammogram for malignant neoplasm of breast 02/11/2018 08/25/2018 [facility] [place] Syncope and collapse 09/18/2017 12/17/2017 [facility] HYPOTENSION Active 09/09/2017 [facility] ATYPICAL SYNCOPE, HYPOTENSION, DEHYDRATI Active 09/09/2017 [facility] 794.8 ABNORMAL LIVER FUNCTION STUDY Active 01/11/2015 [facility] 922.31 - BACK CONTUSION Active 05/10/2013 [facility] Diarrhea, unspecified 12/17/2017 [facility] Volume depletion, unspecified 12/17/2017 [facility] Abnormal weight loss 12/17/2017 [facility] Orthostatic hypotension 12/17/2017 [facility] Type 2 diabetes mellitus without complications 12/17/2017 [facility] Essential hypertension 12/17/2017 [facility] Occlusion and stenosis of bilateral carotid arteries 12/17/2017 [facility] Personal history of transient ischemic attack , and cerebral infarction without residual deficits 12/17/2017 [facility] buttermaker use of oral hypoglycemic drugs 12/17/2017 [facility] ABN LIVER FUNCTION STUDY Active [facility] Medications Medication Details Route Status Patient Instructions Ordering Provider Order Date Source Glipizide 5 MG Oral Tablet 2.5 mg=0.5 tab, PO, Before Breakfast, .., # 15 tab, 0 Refill(s), Pharmacy: [facility] [id number] Active 09/10/2017 [facility] gabapentin 100 MG Oral Capsule 200 mg=2 cap, PO, BID, # 120 cap, 0 Refill(s), Pharmacy: [facility] [id number] Active 09/10/2017 [facility] glipiZIDE extended release 10 mg, Route: PO, Daily, Dosing Weight 62.727, kg, Start date: 09/10/17 9:00:00 CDT, Duration: 30 day, Stop date: 10/09/17 9:00:00 CDT No Longer Active 09/10/2017 [facility] Docusate 100 mg, 1 cap, Route: PO, Drug form: CAP, BID, Dosing Weight 62.727, kg, Start date: 09/10/17 9:00:00 CDT, Duration: 30 day, Stop date: 10/09/17 17:00:00 CDTNotes: (Same as: Colace) (Do Not Crush) Inactive 09/10/2017 [facility] Glipizide 2.5 mg, 0.5 tab, Route: PO, Drug form: TAB, Before Breakfast, Dosing Weight 62.727, kg, Start date: 09/10/17 7:30:00 CDT, Duration: 30 day, Stop date: 10/09/17 7:30:00 CDT, ..Notes: (Same as: Glucotrol) 30 min before meals. Inactive 09/10/2017 [facility] metoprolol tartrate 25 mg, 1 tab, Route: PO, Drug form: TAB, BID, Dosing Weight 62.727, kg, Start date: 09/09/17 21:00:00 CDT, Duration: 30 day, Stop date: 10/09/17 9:00:00 CDTNotes: (Same as: Lopressor) No Longer Active 09/10/2017 [facility] Acetaminophen 325 MG / Hydrocodone Bitartrate 5 MG Oral Tablet 1 tab, Route: PO, Drug Form: TAB, Dosing Weight 62.727, kg, Q4H, PRN Pain Score 4-6, Start date: 09/09/17 18:44:00 CDT, Duration: 30 day, Stop date: 10/09/17 18:43:00 CDTNotes: (Same as: [place] 325/5) Do not exceed 4gm/day of acetaminophen. No Longer Active 09/09/2017 [facility] Acetaminophen 650 mg, 2 tab, Route: PO, Drug form: TAB, Q4H, Dosing Weight 62.727, kg, PRN Pain 1-3/Temp > 100.4 F, Start date: 09/09/17 18:44:00 CDT, Duration: 30 day, Stop date: 10/09/17 18:43:00 CDTNotes: Do not exceed 4 gm/day. (Same as: Tylenol) No Longer Active 09/09/2017 [facility] Ondansetron 4 mg, 2 mL, Route: IVP, Drug form: INJ, Q6H, Dosing Weight 62.727, kg, PRN Nausea & Vomiting, Start date: 09/09/17 18:44:00 CDT, Duration: 30 day, Stop date: 10/09/17 18:43:00 CDTNotes: (Same as: Zofran) MEDICATION WASTE Product Size: 4 mg Product Wasted: ___ mg No Longer Active 09/09/2017 [facility] Morphine 6 mg, 3 mL, Route: PO, Drug form: SOLN, Q4H, Dosing Weight 62.727, kg, PRN Pain Score 7-10, Start date: 09/09/17 18:44:00 CDT, Duration: 30 day, Stop date: 10/09/17 18:43:00 CDTNotes: (Same as:MORPhine Sulfate) No Longer Active 09/09/2017 [facility] glipiZIDE extended release 10 mg, PO, Daily, 0 Refill(s) No Longer Active 09/09/2017 [facility] metoprolol tartrate 50 mg, BID, 0 Refill(s) Active 09/09/2017 [facility] gabapentin 100 MG Oral Capsule 300 mg=3 cap, PO, TID, 0 Refill(s) No Longer Active 09/09/2017 [facility] lisinopril 5 mg oral tablet 5 mg=1 tab, PO, Daily, 0 Refill(s) No Longer Active 09/09/2017 [facility] Lisinopril PO, Daily, 0 Refill(s) No Longer Active 09/09/2017 [facility] Dicyclomine Hydrochloride 20 MG Oral Tablet [Bentyl] 20 mg=1 tab, PO, QID, 0 Refill(s) Active 09/09/2017 [facility] Allergies, Adverse Reactions, Alerts Substance Category [...] mammogram, 11/15/2012 mammogram, and 09/15/2011 mammogram - [facility]. TECHNIQUE: Mammographic views were obtained using digital [...] is recommended.(02/06/2019) This exam was interpreted at [id number] at [facility] Location. Professional services are provided by the [facility] Division of Diagnostic Imaging. Kiana Hutton M.D. th/penrad:02/07/2018 20:38:39 [employer] Worker(s): Tea Richmond RT(R)(M), [facility] letter sent: BI-RADS 1/2 Mammogram BI-RADS: 1 Negative 02/05/2018 - - Read by: Kiana Hutton MD Dictated Date/time: 02/07/18 20:38 Electronically Signed by: Kiana Hutton MD 02/07/18 20:38 FINAL REPORT [facility] URINE AND STOOL UA Urobilinogen <=1.0 mg/dL 0.1 - 1.0 09/10/2017 [facility] URINE AND STOOL UA Turbidity Slight *ABN* (09/09/17 9:37 PM) Clear 09/10/2017 [facility] URINE AND STOOL UA Spec Grav 1.014 <=1.030 09/10/2017 [facility] URINE AND STOOL UA Nitrite Negative (09/09/17 9:37 PM) Negative 09/10/2017 [facility] URINE AND STOOL UA Sq Epi Occasional /LPF Few /LPF 09/10/2017 [facility] URINE AND STOOL UA Mucus Few /LPF None Seen /LPF 09/10/2017 [facility] URINE AND STOOL UA Leuk Est Negative (09/09/17 9:37 PM) Negative 09/10/2017 [facility] URINE AND STOOL UA Blood Negative (09/09/17 9:37 PM) Negative 09/10/2017 [facility] URINE AND STOOL UA Protein Negative mg/dL Negative mg/dL 09/10/2017 [facility] URINE AND STOOL UA Glucose Negative mg/dL Negative mg/dL 09/10/2017 [facility] URINE AND STOOL UA pH 5.0 5.0 - 8.0 09/10/2017 [facility] URINE AND STOOL UA Color Yellow *NA* (09/09/17 9:37 PM) Yellow 09/10/2017 [facility] URINE AND STOOL UA Bili Negative *NA* (09/09/17 9:37 PM) Negative 09/10/2017 [facility] URINE AND STOOL UA Ketones Negative mg/dL Negative mg/dL 09/10/2017 [facility] Carotid artery Doppler bilat US Carotid artery Doppler bilat US Patient Name: REGINA VALENZUELA : 1935; Age: 82 years Female MR: [id number] Study: Carotid artery Doppler bilat US 09/09/2017 [...] Brenton Flores MD 09/09/17 21:59 FINAL REPORT [facility] CARDIAC ENZYMES BNP 28 pg/mL <=100 pg/mL 09/09/2017 [facility] CARDIAC ENZYMES Troponin-I null 0.00 - 0.40 09/09/2017 [facility] ELECTROLYTES AGAP 9.2 meq/L 10.0 - 20.0 09/09/2017 [facility] ELECTROLYTES eGFR 55 mL/min/1.73m2 09/09/2017 Result [...] should be multiplied by the estimated BMI. [facility] ELECTROLYTES Calcium Lvl 7.6 mg/dL 8.5 - 10.5 09/09/2017 [facility] ELECTROLYTES CO2 25 meq/L 24 - 32 09/09/2017 [facility] ELECTROLYTES Potassium Lvl 4.2 meq/L 3.5 - 5.1 09/09/2017 [facility] ELECTROLYTES Chloride Lvl 107 meq/L 95 - 109 09/09/2017 [facility] ELECTROLYTES Glucose Lvl 193 mg/dL 70 - 99 09/09/2017 [facility] ELECTROLYTES BUN 16 mg/dL 7 - 22 09/09/2017 [facility] ELECTROLYTES Creatinine Lvl 0.96 mg/dL 0.50 - 1.40 09/09/2017 [facility] ELECTROLYTES Sodium Lvl 137 meq/L 135 - 145 09/09/2017 [facility] HEMATOLOGY RDW 15.5 % 11.5 - 14.5 09/09/2017 [facility] HEMATOLOGY MPV 9.8 fL 7.4 - 10.4 09/09/2017 [facility] HEMATOLOGY Platelet 81 K/CMM 133 - 450 09/09/[address] [facility] MCH 25.2 pg 27.0 - 31.0 09/09/[address] [facility] MCHC 32.1 g/dL 32.0 - 36.0 09/09/[address] [facility] Hct 31.7 % 36.0 - 48.0 09/09/[address] [facility] MCV 78.5 fL 80.0 - 98.0 09/09/[address] [facility] Hgb 10.2 g/dL 12.0 - 16.0 09/09/2017 [facility] RBC 4.04 M/CMM 4.20 - 5.40 09/09/[address] [facility] WBC 4.4 K/CMM 3.7 - 10.4 09/09/[address] [facility] Segs 70.4 % 45.0 - 75.0 09/09/[address] [facility] Lymphocytes 11.9 % 20.0 - 40.0 09/09/[address] [facility] Monocytes 12.9 % 2.0 - 12.0 09/09/[address] [facility] Eosinophils 4.1 % 0.0 - 4.0 09/09/[address] [facility] Basophils 0.7 % 0.0 - 1.0 09/09/[address] [facility] Segs-Bands # 3.1 K/CMM 1.5 - 8.1 09/09/[address] [facility] Monocytes # 0.6 K/CMM 0.0 - 0.8 09/09/[address] [facility] Lymphocytes # 0.5 K/CMM 1.0 - 5.5 09/09/[address] [facility] Microcyte 1+ *ABN* (09/09/17 12:10 PM) None Seen 09/09/[address] [facility] Eosinophils # 0.2 K/CMM 0.0 - 0.5 09/09/2017 [facility] Brain wo contrast CT Brain wo [...] atrophy and chronic microvascular ischemic disease. SL: [id number] 09/09/2017 - - Read by: Mitch Sue MD Dictated Date/time: 09/09/17 14:27 Electronically Signed by: Mitch Sue MD 09/09/17 14:28 FINAL REPORT [facility] Chest 1view DX Chest 1view DX [...] abnormality is noted in the chest. SL: [id number] 09/09/2017 - - Read by: Kadeem Condon MD Dictated Date/time: 09/09/17 12:44 Electronically Signed by: Kadeem Condon MD 09/09/17 12:45 FINAL REPORT [facility] Liver US Liver US HISTORY: Abnormal [...] Osmar Zhong MD 01/15/15 10:18 FINAL REPORT [facility] Digital Mammo Screening David MA Digital Mammo Screening David MA - DIGITAL MAMMO SCREENING DAVID MA BILATERAL DIGITAL SCREENING MAMMOGRAM WITH CAD: 12/27/2014 CLINICAL: Routine. Current study was evaluated with a Computer Aided Detection (CAD) system. Comparison is made to exams dated: 01/08/2009 mammogram - [place], 01/14/2010 mammogram, 09/15/2011 mammogram and 11/15/2012 mammogram - [facility]. The tissue of both breasts is almost entirely fat. Acquired images are the best technically achievable. No significant masses, calcifications, or other findings are seen in either breast. There has been no significant interval change. IMPRESSION: BENIGN There is no mammographic evidence of malignancy. A 1 year screening mammogram is recommended. Dr. Berry Mendoza M.D. eoc/penrad:12/27/2014 12:07:06 [employer] Worker: Roxanna FLANAGAN(Cesar)(M), [facility] This exam was dictated and interpreted by [id number] for SEE Marrufo. letter sent: Normal exam Mammogram BI-RADS: 2 Benign 12/27/2014 - - Read by: Berry Mendoza MD Dictated Date/time: 12/27/14 12:07 Electronically Signed by: Berry Mendoza MD 12/27/14 12:07 [facility] [place] Spine lumbar minimum 4 views Spine lumbar [...] made to exams dated: 01/08/2009 mammogram - [place], 01/14/2010 mammogram and 09/15/2011 mammogram - [facility]. The tissue of both breasts is predominantly fatty. There is a benign mass in the left breast. No significant masses, calcifications, or other findings are seen in either breast. There has been no significant interval change. IMPRESSION: BENIGN There is no mammographic evidence of malignancy. A screening mammogram in one year is recommended. Nuno Fang M.D. srp/penrad:11/16/2012 11:54:41 [employer] Worker: Meredith FLANAGAN(R)(M), [facility] letter sent: Normal exam Mammogram BI-RADS: 2 Benign 11/15/2012 - - Read by: Nuno Fang Dictated Date/time: 11/16/12 11:54 Electronically Signed by: Nnuo Fang 11/16/12 11:54 FINAL REPORT [facility] Vital Signs Vital Sign Value Date Comments Source Systolic (mm Hg) 124 09/10/2017 [facility] Diastolic (mm Hg) 64 09/10/2017 [facility] Heart Rate 71 09/10/2017 [facility] Temperature Oral (F) 98.9 F 09/10/2017 [facility] Respitory Rate 16 09/10/2017 [facility] Heart Rate 71 09/10/2017 [facility] Temperature Oral (F) 98.6 F 09/10/2017 [facility] Respitory Rate 15 09/10/2017 [facility] Systolic (mm Hg) 133 09/10/2017 [facility] Diastolic (mm Hg) 86 09/10/2017 [facility] Temperature Oral (F) 98.8 F 09/10/2017 [facility] Heart Rate 68 09/10/2017 [facility] Respitory Rate 16 09/10/2017 [facility] Systolic (mm Hg) 126 09/10/2017 [facility] Diastolic (mm Hg) 57 09/10/2017 [facility] Height 160.02 cm 09/09/2017 [facility] BMI Calculated 24.14 09/09/2017 [facility] Weight 61.818 09/09/2017 [facility] Height 162.56 cm 09/09/2017 [facility] BMI Calculated 23.74 09/09/2017 [facility] Weight 62.727 09/09/2017 [facility] Encounters Location Location Details Encounter Type Encounter Number Reason For Visit Attending Provider ADM Date DC Date Status Source OD [id number] 922.31 - BACK CONTUSION DIPESH MATAMOROS 05/10/2013 05/10/2013 Active [facility] [place] [facility] - [place] [facility] [id number] Dipesh Matamoros 12/27/2014 12/28/2014 [facility] [place] [facility] Outpatient [id number] Dipesh Matamoros 01/15/2015 01/16/2015 [facility] Observation [id number] Sandi Mauricio 09/09/2017 09/10/2017 [facility] - [place] [facility] [id number] Dipesh Matamoros 02/05/2018 02/06/2018 [facility] Procedures Procedure Code Date Perfomer Comments Source
[2018-08-25 14:24] LABS: BASOPHILS % 0.2 % (0.0-1.0); EOSINOPHILS % 0.3 % (0.0-6.0); HEMATOCRIT 33.2 % (34.2-44.1); HEMOGLOBIN 10.7 g/dL (12.0-16.0); LYMPHOCYTES % 9.3 % (18.0-39.1); MEAN CORPUSCULAR HGB CONC 32.2 g/dL (31-35); MEAN CORPUSCULAR VOLUME 77.6 fL (81-99); MONOCYTES # (AUTO) 0.7 (0.2-0.8); MONOCYTES % 6.5 % (4.4-11.3); NEUTROPHILS # (AUTO) 8.6 (2.1-6.9); NEUTROPHILS % 83.4 % (38.7-80.0); PLATELET COUNT 120 x10e3/uL (140-360); RED BLOOD COUNT 4.28 x10e6/uL (3.6-5.1); RED CELL DISTRIBUTION WIDTH 14.7 % (11.7-14.4)
[2018-08-25 14:36] LABS: ALANINE AMINOTRANSFERASE 46 IU/L (0-55); ALBUMIN 3.9 g/dL (3.5-5.0); ALKALINE PHOSPHATASE 111 IU/L (40-150); ANION GAP 14.5 mmol/L (8-16); BLOOD UREA NITROGEN 22 mg/dL (7-26); BUN/CREATININE RATIO 23 (6-25); CALCIUM 10.8 mg/dL (8.4-10.2); CARBON DIOXIDE 25 mmol/L (22-29); CHLORIDE 94 mmol/L (98-107); CREATINE KINASE 99 IU/L (29-168); CREATININE, SERUM 0.95 mg/dL (0.57-1.11); EST GLOMERULAR FILTRATION RATE 56 ML/MIN (60-); GLUCOSE 173 mg/dL (74-118); SODIUM 128 mmol/L (136-145)
[2018-08-25 14:38] LABS: POTASSIUM 5.5 mmol/L (3.5-5.1)
--- NOTE | 2018-08-25 15:23 | Diagnostic Imaging Report ---
Examination: Single AP view of the chest. COMPARISON: None. INDICATION: Shortness of breath DISCUSSION: Lines/tubes: None. Lungs: The lungs are well inflated and clear. No pneumonia or pulmonary edema. Pleura: No pleural effusion or pneumothorax. Heart and mediastinum: The heart and the mediastinum are unremarkable. Bones and soft tissues: No acute bony abnormalities. IMPRESSION: 1. No acute cardiopulmonary abnormalities. Signed by: Dr. Izaiah Hoffman M.D. on 08/25/2018 3:20 PM
[2018-08-25] MEDS ORDERED: SOD POLYSTYRENE SULFONATE SUSP 15 GM/60 ML BTL PO ONE (16:00)
[2018-08-25 16:46] VITALS: BP 155/57
== END 2018-08-25 17:05 | disposition home or self-care (01) ==
LOC: ER 13:08
DX: R06.09 Other forms of dyspnea (principal); F41.1 Generalized anxiety disorder
CPT/HCPCS: 36415; 71045; 80053; 82550; 82553; 84484; 85025; 93005; 99284

== ENCOUNTER 2020-06-20 11:39 | Emergency (ER) | payer MEDICARE ==
[~2020-06-20] VITALS: Ht 165.1 cm; Wt 65.3 kg
[2020-06-20] MEDS ORDERED: ASPIRIN 81 MG CHEW TAB PO ONE (12:00)
[2020-06-20 12:15] LABS: BASOPHILS % 0.6 % (0.0-1.0); EOSINOPHILS # (AUTO) 0.1 (0.0-0.4); EOSINOPHILS % 2.3 % (0.0-6.0); HEMATOCRIT 31.3 % (34.2-44.1); HEMOGLOBIN 9.5 g/dL (12.0-16.0); LYMPHOCYTES # (AUTO) 0.8 (1.0-3.2); LYMPHOCYTES % 23.6 % (18.0-39.1); MEAN CORPUSCULAR HEMOGLOBIN 24.2 pg (28-32); MEAN CORPUSCULAR HGB CONC 30.4 g/dL (31-35); MEAN CORPUSCULAR VOLUME 79.8 fL (81-99); MONOCYTES # (AUTO) 0.3 (0.2-0.8); MONOCYTES % 7.1 % (4.4-11.3); NEUTROPHILS # (AUTO) 2.3 (2.1-6.9); NEUTROPHILS % 65.5 % (38.7-80.0); PLATELET COUNT 75 x10e3/uL (140-360); RED BLOOD COUNT 3.92 x10e6/uL (3.6-5.1); RED CELL DISTRIBUTION WIDTH 15.8 % (11.7-14.4)
[2020-06-20 12:31] LABS: ALBUMIN 3.6 g/dL (3.5-5.0); ALBUMIN/GLOBULIN RATIO 1.1 (0.8-2.0); ANION GAP 14.7 mmol/L (8-16); CALCIUM 9.8 mg/dL (8.4-10.2); CREATININE, SERUM 0.92 mg/dL (0.57-1.11); POTASSIUM 4.7 mmol/L (3.5-5.1)
[2020-06-20 12:37] LABS: CREATINE KINASE MB 1.4 ng/mL (0-5.0)
== END 2020-06-20 13:44 | disposition home or self-care (01) ==
LOC: ER 12:04
DX: R06.00 Dyspnea, unspecified (principal); I49.1 Atrial premature depolarization; R94.31 Abnormal electrocardiogram [ECG] [EKG]; I10 Essential (primary) hypertension; E11.9 Type 2 diabetes mellitus without complications
CPT/HCPCS: 36415; 71045; 80053; 82550; 82553; 83880; 84484; 85025; 93005; 99284; U0002

== ENCOUNTER → 2020-07-12 | Outpatient (CLI) | payer MEDICARE ==
[~2020-07-12] MED LIST changes: +REGADENOSON 0.4 MG/5 ML SYR IV ONE
== END ==
LOC: RAD 08:27
PROVIDERS: ATTEND Internal Medicine
DX: R06.02 Shortness of breath (principal)
CPT/HCPCS: 78452; 93017; 93306; A9502; J2785

== ENCOUNTER 2020-08-09 14:00 | Emergency (ER) | payer MEDICARE ==
[~2020-08-09] VITALS: Ht 165.1 cm; Wt 65.3 kg
[~2020-08-09 14:00] MED LIST changes: -REGADENOSON 0.4 MG/5 ML SYR IV ONE
== END 2020-08-09 14:46 | disposition home or self-care (01) ==
LOC: ER 14:22
DX: N95.0 Postmenopausal bleeding (principal); I10 Essential (primary) hypertension; E11.9 Type 2 diabetes mellitus without complications
CPT/HCPCS: 99282

== ENCOUNTER 2021-09-23 16:55 | Emergency (ER) | payer MEDICARE ==
[~2021-09-23] VITALS: Ht 160 cm; Wt 63.5 kg
[2021-09-23] MEDS ORDERED: ONDANSETRON HCL INJ 2MG/ML 2ML 2 MG/ML VIAL IV STA (17:28)
[2021-09-23] MEDS ORDERED: CEFTRIAXONE 1 GM in SODIUM CHLORIDE 0.9% 50ML 50 ML IV ONE (17:30)
[2021-09-23] MEDS ORDERED: SODIUM CHLORIDE 0.9% 1000ML 1,000 ML IV ONE (17:30)
[2021-09-23] MEDS ORDERED: ACETAMINOPHEN 325 MG TAB PO ONE (17:30)
[2021-09-23 17:53] LABS: BASOPHILS % 0.4 % (0.0-1.0); EOSINOPHILS # (AUTO) 0.1 (0.0-0.4); EOSINOPHILS % 1.7 % (0.0-6.0); HEMOGLOBIN 10.7 g/dL (12.0-16.0); LYMPHOCYTES # (AUTO) 0.7 (1.0-3.2); LYMPHOCYTES % 9.8 % (18.0-39.1); MEAN CORPUSCULAR HEMOGLOBIN 25.1 pg (28-32); MEAN CORPUSCULAR HGB CONC 30.6 g/dL (31-35); MEAN CORPUSCULAR VOLUME 82.2 fL (81-99); MONOCYTES # (AUTO) 0.5 (0.2-0.8); NEUTROPHILS # (AUTO) 6.1 (2.1-6.9); NEUTROPHILS % 80.7 % (38.7-80.0); PLATELET COUNT 98 x10e3/uL (140-360); RED BLOOD COUNT 4.26 x10e6/uL (3.6-5.1)
[2021-09-23 18:06] LABS: CLARITY,URINE SL CLOUDY (CLEAR); COLOR,URINE STRAW (YELLOW); LEUKOCYTE ESTERASE ,URINE NEGATIVE (NEGATIVE); NITRITE,URINE NEGATIVE (NEGATIVE)
[2021-09-23] MEDS ORDERED: IOPAMIDOL 370 MG/ML 200 ML INFUS..BTL INJ ONE (18:06)
[2021-09-23] MEDS ORDERED: SODIUM CHLORIDE 0.9% 50ML 50 ML ONE (18:06)
[2021-09-23 18:07] LABS: KETONES,URINE NEGATIVE (NEGATIVE); PROTEIN,URINE DIPSTICK TRACE (NEGATIVE); URINE UROBILINOGEN 0.2 mg/dL (0.2 - 1)
[2021-09-23 18:09] LABS: ALBUMIN 3.4 g/dL (3.5-5.0); ALBUMIN/GLOBULIN RATIO 0.8 (0.8-2.0); ANION GAP 12.4 mmol/L (8-16); CALCIUM 10.7 mg/dL (8.4-10.2); CREATININE, SERUM 0.99 mg/dL (0.57-1.11); POTASSIUM 4.4 mmol/L (3.5-5.1)
[2021-09-23 18:16] LABS: CREATINE KINASE MB 1.3 ng/mL (0-5.0)
[2021-09-23 18:20] LABS: BACTERIA,URINE MODERATE /HPF; EPITHELIAL CELLS,URINE FEW /LPF; RBC,URINE 0-5 /HPF (0-5)
[2021-09-23 18:21] LABS: AMORPHOUS SEDIMENT,URINE FEW (FEW)
[2021-09-23 20:35] VITALS: BP 132/58
== END 2021-09-23 20:40 | disposition home or self-care (01) ==
LOC: ER 17:25
DX: R19.7 Diarrhea, unspecified (principal); R50.9 Fever, unspecified; Z20.822 Contact with and (suspected) exposure to COVID-19; E11.65 Type 2 diabetes mellitus with hyperglycemia; F03.90 Unspecified dementia, unspecified severity, without behavioral disturbance, psychotic disturbance, mood disturbance, and anxiety; I10 Essential (primary) hypertension; M54.9 Dorsalgia, unspecified; G89.29 Other chronic pain
CPT/HCPCS: 36415; 71045; 74177; 80053; 81001; 82550; 82553; 83605; 84484; 85025; 87040; 87086; 93005; 99284; J0696; J2405; J7030; Q9967; U0002